=== PATIENT | male | born 1985 | race Two or more races ===

== ENCOUNTER 2024-08-19 19:18 | Emergency (ER) | payer OTHER ==
[~2024-08-19] VITALS: Ht 182.9 cm; Wt 81.8 kg
[2024-08-19 20:13] LABS: Basophils # (auto) 0 10 ^3/uL (0-0.2); Basophils % (auto) 0.3 % (0.0-2.0); Eosinophils # (auto) 0 10 ^3/uL (0-0.8); Eosinophils % (auto) 0.1 % (0.0-7.0); Hematocrit 40.6 % (41.0-53.0); Hemoglobin 13.9 g/dL (13.5-17.5); Lymphocytes # (auto) 0.6 10 ^3/uL (0.4-5.4); Lymphocytes % (auto) 6.9 % (10.0-50.0); Mean Corpuscular Hemoglobin 35.5 pg (28.0-32.0); Mean Corpuscular Hgb Conc. 34.3 g/dL (32.0-36.0); Mean Corpuscular Volume 103.6 fL (80.0-100.0); Monocytes # (auto) 2.6 10 ^3/uL (0-1.3); Monocytes % (auto) 30.5 % (0.0-12.0); Neutrophils # (auto) 5.3 10 ^3/uL (1.6-8.6); Neutrophils % (auto) 62.2 % (37.0-80.0); Nucleated Red Blood Cells % 0.1 %; Platelet Count (auto) 100 10^3/uL (140-450); Red Blood Cells 3.91 10^6/uL (4.5-5.90); Red Cell Distribution Width 13.2 % (11.8-14.3); White Blood Cell 8.5 10^3/uL (4.4-10.8)
[2024-08-19 20:27] LABS: Chloride 98 mmol/L (98-107); Potassium 2.9 mmol/L (3.5-5.1); Sodium 137 mmol/L (136-145)
[2024-08-19 20:28] LABS: Anion Gap 14 (5-15); Calcium 10.4 mg/dL (8.7-10.4); Carbon Dioxide 25 mmol/L (20-31)
[2024-08-19 20:33] LABS: BUN/Creatinine Ratio 34.8 (10.0-20.0); Blood Urea Nitrogen 32 mg/dL (9-23); Glucose 93 mg/dL (74-106)
[2024-08-19 20:34] LABS: Blood Alcohol < 3.0 mg/dL (<10)
[2024-08-19 20:36] LABS: Salicylate < 3.0 mg/dL (-30)
[2024-08-19] MEDS: LORazepam 2MG/ML-1ML VIAL IV ONE (23:19)
[2024-08-20] MEDS: LORazepam 2MG/ML-1ML VIAL IV ONE ×2 (01:23→03:09)
[2024-08-20] MEDS: LORazepam 2MG/ML-1ML VIAL ONE (01:23)
[2024-08-20 01:30] VITALS: PULSE 98; RESP 12; O2SAT 97
[2024-08-20 02:01] LABS: Urine Bacteria None Seen /hpf (None Seen)
[2024-08-20 02:20] LABS: Amphetamine Screen, Urine Neg (NEGATIVE); Barbiturate Scree,Urine Neg (NEGATIVE); Benzodiazephine Screen, Urine Neg (NEGATIVE)
[2024-08-20 02:21] LABS: Cannabinoid Screen, Urine Pos (NEGATIVE); Cocaine Screen, Urine Neg (NEGATIVE); Opiate Scree,Urine Neg (NEGATIVE); Phencyclidine Screen, Urine Neg (NEGATIVE)
[2024-08-20 02:22] LABS: Urine Blood Negative /uL (Negative); Urine Clarity Clear (Clear); Urine Color Yellow (Yellow); Urine Mucus FEW (None Seen); Urine Protein, UAD Negative (Negative); Urine Specific Gravity 1.027 (1.001-1.035); Urine Urobilinogen 2 mg/dL (Negative); Urine WBC 2 /hpf (0 - 3)
[2024-08-20] MEDS ORDERED: LORazepam 2MG/ML-1ML VIAL IM ONE (02:45)
[2024-08-20] MEDS: HALOPERIDOL LACTATE 5 MG/ML INJ VIAL IM ONE (02:49)
[2024-08-20] MEDS: POTASSIUM CHL 20MEQ/100ML 100 ML IV SCH (02:56)
[2024-08-20 08:00] VITALS: PULSE 84; RESP 20; TEMP 100.2; O2SAT 99
[2024-08-20] MEDS: POTASSIUM EFFERVESENT TAB 25 MEQ PO ONE (08:40)
[2024-08-20] MEDS: MIDAZOLAM HCL 5 MG/ML-1ML VIAL IM ONE (14:45)
[2024-08-20] MEDS: MIDAZOLAM HCL 5 MG/ML-1ML VIAL ONE (14:50)
[2024-08-20 18:00] VITALS: BP 128/72; PULSE 72; RESP 16; O2SAT 98
== END 2024-08-20 18:12 | disposition home or self-care (01) ==
LOC: ER 19:18 → EDBD 19:18 → ER 08-20 18:12
DX: R41.82 Altered mental status, unspecified (principal); F41.9 Anxiety disorder, unspecified; F12.90 Cannabis use, unspecified, uncomplicated; F15.90 Other stimulant use, unspecified, uncomplicated; Z88.0 Allergy status to penicillin
CPT/HCPCS: 36415; 70450; 80048; 80307; 80320; 80329; 81001; 84132; 85025; 96365; 96366; 96372; 96375; 96376; 99285; J1630; J2060; J2250; J3480